=== PATIENT | male | born 1965 | race Asian ===

== ENCOUNTER 2021-11-29 08:44 | Emergency (ER) | payer OTHER ==
[~2021-11-29] VITALS: Ht 175.3 cm; Wt 63.6 kg
[~2021-11-29 08:44] MED LIST: AMLO-258 PO; ASPI-1450 PO; GEMF-77 PO; HYDR25TA2 PO
[2021-11-29] MEDS ORDERED: MECLIZINE HCL 25 MG TABLET PO ONE (09:15)
[2021-11-29 10:10] VITALS: BP 139/95
[2021-11-29] MEDS ORDERED: MECL-134 PO (10:39)
== END 2021-11-29 10:54 | disposition home or self-care (01) ==
LOC: EMS 08:47
DX: R42 Dizziness and giddiness (principal); I10 Essential (primary) hypertension
CPT/HCPCS: 70450; 99284

== ENCOUNTER 2022-01-11 09:35 | Emergency (ER) | payer OTHER ==
[~2022-01-11 09:35] MED LIST changes: -AMLO-258 PO; -ASPI-1450 PO; -GEMF-77 PO; -HYDR25TA2 PO; +MECL-134 PO
== END 2022-01-11 11:55 | disposition left against medical advice (07) ==
LOC: EMS 09:36
DX: Z53.21 Procedure and treatment not carried out due to patient leaving prior to being seen by health care provider (principal)